=== PATIENT | female | born 1950 | race Caucasian/White ===

== ENCOUNTER 2018-07-07 16:45 | Emergency (ER) | payer OTHER ==
[~2018-07-07] VITALS: Ht 162.6 cm; Wt 60.3 kg
[2018-07-07 17:48] LABS: ABSOLUTE EOSINOPHILS 0.1 thou/uL (0.0-0.7); ABSOLUTE LYMPHOCYTES 1.8 thou/uL (0.8-5.3); ABSOLUTE MONOCYTES 0.5 thou/uL (0.0-1.2); BASOPHILS 0.6 %; EOSINOPHILS 1.8 %; HEMATOCRIT 40.4 % (37.0-47.0); HEMOGLOBIN 13.9 gm/dL (12.0-15.0); LYMPHOCYTES 33.3 %; MCH 32.9 pg (26.0-34.0); MCHC 34.4 g/dL (28.0-37.0); MCV 95.6 fL (80.0-100.0); MONOCYTES 9.9 %; MPV 6.6 fl. (7.2-11.1); NUCLEATED RBCS 0 /100WBC; PLATELET COUNT* 258 thou/uL (150-400); POLYS 54.4 %; RBC 4.23 mil/uL (4.20-5.00); RDW-CV 12.8 % (10.5-14.5); WBC 5.5 thou/uL (4.0-11.0)
[2018-07-07 18:00] LABS: ALBUMIN 3.5 g/dL (3.4-5.0); CALCIUM 8.8 mg/dL (8.5-10.1); TOTAL BILIRUBIN 0.5 mg/dL (<0.1-1.0); TOTAL PROTEIN 6.9 g/dL (6.4-8.2)
[2018-07-07] MEDS ORDERED: PERIDEX 0.12%473 M1 SWISH&SPIT (18:33)
[2018-07-07] MEDS ORDERED: LIDOCAINE VISC100 ML SWISH&SPIT (18:33)
[2018-07-07 18:39] VITALS: BP 135/69
== END 2018-07-07 18:40 | disposition home or self-care (01) ==
LOC: M.ERS 16:45
PROVIDERS: Physician Assistant
DX: M87.88 Other osteonecrosis, other site (principal); R10.9 Unspecified abdominal pain; K13.0 Diseases of lips; Z88.5 Allergy status to narcotic agent; Z88.8 Allergy status to other drugs, medicaments and biological substances